=== PATIENT | male | born 1965 | race Caucasian/White ===

== ENCOUNTER 2020-11-13 11:33 | Emergency (ER) | payer MEDICARE ==
[~2020-11-13] VITALS: Ht 167.6 cm; Wt 90.7 kg
== END 2020-11-13 15:29 | disposition home or self-care (01) ==
LOC: ER 11:55
DX: J44.9 Chronic obstructive pulmonary disease, unspecified (principal); R06.2 Wheezing; I10 Essential (primary) hypertension; F17.210 Nicotine dependence, cigarettes, uncomplicated
CPT/HCPCS: 99282

== ENCOUNTER 2021-01-21 13:30 | Inpatient (IN) | payer MEDICARE ==
[~2021-01-21] VITALS: Ht 167.6 cm; Wt 90.7 kg
[2021-01-21] MEDS ORDERED: ONDANSETRON HCL INJ 2MG/ML 2ML 2 MG/ML VIAL IV STA (13:46)
[2021-01-21] MEDS ORDERED: METHYLPREDNISOLONE SOD SUCC 125 MG/2ML VIAL IV STA (13:46)
[2021-01-21] MEDS ORDERED: MORPHINE SULFATE INJ 2 MG/ML SYR IV STA (13:46)
[2021-01-21 14:05] LABS: BASOPHILS # (AUTO) 0.1 (0.0-0.1); BASOPHILS % 0.5 % (0.0-1.0); EOSINOPHILS # (AUTO) 0.3 (0.0-0.4); EOSINOPHILS % 1.2 % (0.0-6.0); HEMATOCRIT 51.2 % (38.2-49.6); HEMOGLOBIN 17.1 g/dL (14.0-18.0); LYMPHOCYTES # (AUTO) 3.2 (1.0-3.2); LYMPHOCYTES % 12.4 % (18.0-39.1); MEAN CORPUSCULAR HEMOGLOBIN 30.3 pg (28-32); MEAN CORPUSCULAR HGB CONC 33.4 g/dL (31-35); MEAN CORPUSCULAR VOLUME 90.6 fL (81-99); MONOCYTES # (AUTO) 1.6 (0.2-0.8); MONOCYTES % 6.4 % (4.4-11.3); NEUTROPHILS # (AUTO) 20.2 (2.1-6.9); NEUTROPHILS % 78.6 % (38.7-80.0); PLATELET COUNT 363 x10e3/uL (140-360); RED BLOOD COUNT 5.65 x10e6/uL (4.3-5.7); RED CELL DISTRIBUTION WIDTH 14.6 % (11.7-14.4)
[2021-01-21 14:15] LABS: INR 0.87; PARTIAL THROMBOPLASTIN TIME 28.9 seconds (23.8-35.5); PROTHROMBIN TIME 12.3 seconds (11.9-14.5)
[2021-01-21 14:26] LABS: ALANINE AMINOTRANSFERASE 27 IU/L (0-55); ALBUMIN 3.8 g/dL (3.5-5.0); ALKALINE PHOSPHATASE 95 IU/L (40-150); ANION GAP 14.3 mmol/L (8-16); BLOOD UREA NITROGEN 17 mg/dL (7-26); BUN/CREATININE RATIO 19 (6-25); CALCIUM 9.5 mg/dL (8.4-10.2); CARBON DIOXIDE 27 mmol/L (22-29); CHLORIDE 99 mmol/L (98-107); CREATINE KINASE 133 IU/L (30-200); CREATININE, SERUM 0.91 mg/dL (0.72-1.25); EST GLOMERULAR FILTRATION RATE > 60 ML/MIN (60-); GLUCOSE 95 mg/dL (74-118); MAGNESIUM 2.3 MG/DL (1.3-2.1); POTASSIUM 4.3 mmol/L (3.5-5.1); SODIUM 136 mmol/L (136-145)
[2021-01-21] MEDS ORDERED: ALBUTEROL/IPRATROPIUM 3 ML NEB NEB ONE (14:30)
[2021-01-21] MEDS ORDERED: NITROGLYCERIN 2% OINT 1 GM PKT TOP ONE (14:30)
[2021-01-21] MEDS ORDERED: CEFTRIAXONE SOD 1 GM/50 ML BAG IV SCH (14:30)
[2021-01-21 14:34] LABS: B-TYPE NATRIURETIC PEPTIDE2 32.2 pg/mL (0-100)
[2021-01-21] MEDS: CEFTRIAXONE SOD 1 GM in SODIUM CHLORIDE 0.9% 50ML 50 ML IV SCH (14:39)
[2021-01-21] MEDS ORDERED: SODIUM CHLORIDE 0.9% 1000ML 1,000 ML IV ONE (15:15)
[2021-01-21] MEDS ORDERED: ALBUTEROL SULF 0.083% NEB SOLN 3 ML NEB NEB PRN (15:15)
[2021-01-21] MEDS: AZITHROMYCIN 500MG/NS 250 ML 250 ML IV SCH (15:25)
[2021-01-21] MEDS: NICOTINE 21 MG/EA PATCH TOP SCH (15:42)
[2021-01-21 17:00] VITALS: BP_SYST 128; BP_SYST 131; BP_DIAS 84; BP_DIAS 87
[2021-01-21 20:00] VITALS: BP 123/87
[2021-01-21] MEDS ORDERED: ATORVASTATIN CA40 MG PO (20:19)
[2021-01-21] MEDS ORDERED: VALSARTAN-HCTZ1 EAC4 PEG (20:19)
[2021-01-21] MEDS ORDERED: BREO ELLIPTA 21 EACH INH (20:20)
[2021-01-21] MEDS ORDERED: WELLBUTRIN SR100 MG PO (20:21)
[2021-01-21] MEDS ORDERED: METOPROLOL SUCC50 MG PO (20:27)
[2021-01-21] MEDS ORDERED: ASPIRIN81 MG PO (20:27)
[2021-01-21] MEDS ORDERED: PROMETHAZINE 12.5MG/ NACL 0.9% 12.5 MG/50 ML BAG IV PRN (20:45)
[2021-01-21] MEDS: MORPHINE SULFATE INJ 4 MG/ML INJ 1ML IV PRN (20:46)
[2021-01-21 21:00] VITALS: BP 123/87
[2021-01-21] MEDS: ALBUTEROL/IPRATROPIUM 3 ML NEB NEB SCH ×2 (21:01)
[2021-01-21] MEDS: METHYLPREDNISOLONE SOD SUCC 125 MG/2ML VIAL IV SCH (21:32)
[2021-01-21 22:23] LABS: CREATINE KINASE MB 1.1 ng/mL (0-5.0)
[2021-01-22] VITALS (7 sets, daily range): BP systolic 107–141; BP diastolic 74–93
[2021-01-22] MEDS: CEFTRIAXONE SOD 1 GM in SODIUM CHLORIDE 0.9% 50ML 50 ML IV SCH ×2 (02:36→14:20)
[2021-01-22] MEDS ORDERED: CEFTRIAXONE SOD 1 GM VIAL ONE ×2 (02:43→14:12)
[2021-01-22] MEDS ORDERED: SODIUM CHLORIDE 0.9% 50ML 50 ML ONE ×2 (02:43→14:12)
[2021-01-22] MEDS: ALBUTEROL/IPRATROPIUM 3 ML NEB NEB SCH ×6 (03:50→23:40)
[2021-01-22] MEDS: METHYLPREDNISOLONE SOD SUCC 125 MG/2ML VIAL IV SCH ×2 (05:19→17:12)
[2021-01-22] MEDS ORDERED: ZOLPIDEM TARTRATE 5 MG TAB PO PRN (06:00)
[2021-01-22] MEDS ORDERED: ONDANSETRON HCL INJ 2MG/ML 2ML 2 MG/ML VIAL IV PRN (06:00)
[2021-01-22] MEDS: MORPHINE SULFATE INJ 4 MG/ML INJ 1ML IV PRN ×4 (06:09→22:04)
[2021-01-22 06:16] LABS: BASOPHILS % 0.2 % (0.0-1.0); HEMATOCRIT 44.6 % (38.2-49.6); HEMOGLOBIN 14.4 g/dL (14.0-18.0); LYMPHOCYTES # (AUTO) 1.1 (1.0-3.2); MEAN CORPUSCULAR HEMOGLOBIN 29.9 pg (28-32); MEAN CORPUSCULAR HGB CONC 32.3 g/dL (31-35); MEAN CORPUSCULAR VOLUME 92.7 fL (81-99); MONOCYTES # (AUTO) 0.3 (0.2-0.8); MONOCYTES % 1.4 % (4.4-11.3); NEUTROPHILS # (AUTO) 20.6 (2.1-6.9); NEUTROPHILS % 92.6 % (38.7-80.0); PLATELET COUNT 342 x10e3/uL (140-360); RED BLOOD COUNT 4.81 x10e6/uL (4.3-5.7); RED CELL DISTRIBUTION WIDTH 14.9 % (11.7-14.4)
[2021-01-22 06:44] LABS: ALANINE AMINOTRANSFERASE 21 IU/L (0-55); ALBUMIN/GLOBULIN RATIO 0.9 (0.8-2.0); ALKALINE PHOSPHATASE 70 IU/L (40-150); ANION GAP 14.5 mmol/L (8-16); BLOOD UREA NITROGEN 21 mg/dL (7-26); BUN/CREATININE RATIO 21 (6-25); CALCIUM 8.6 mg/dL (8.4-10.2); CARBON DIOXIDE 24 mmol/L (22-29); CHLORIDE 104 mmol/L (98-107); CREATININE, SERUM 1.02 mg/dL (0.72-1.25); EST GLOMERULAR FILTRATION RATE > 60 ML/MIN (60-); GLUCOSE 166 mg/dL (74-118); POTASSIUM 4.5 mmol/L (3.5-5.1); SODIUM 138 mmol/L (136-145)
[2021-01-22 07:18] LABS: CREATINE KINASE MB 1.3 ng/mL (0-5.0)
[2021-01-22] MEDS: NON-FORMULARY MEDICATION (Fluticasone/Vilanterol (Breo Ellipta 200-25 Mcg INH) 1 INH) INH SCH (09:00)
[2021-01-22] MEDS: LORATADINE 10 MG TAB PO SCH (09:24)
[2021-01-22] MEDS: VALSARTAN 160 MG TAB PEG SCH (09:24)
[2021-01-22] MEDS: ASPIRIN 81 MG CHEW TAB PO SCH (09:24)
[2021-01-22] MEDS: GUAIFENESIN/DEXTROMETHORPHAN LIQD 5 ML UDC NG PRN ×3 (09:24→22:04)
[2021-01-22] MEDS: HYDROCHLOROTHIAZIDE 25 MG TAB PO SCH (09:24)
[2021-01-22] MEDS: METOPROLOL SUCCINATE 50 MG TAB XL PO SCH ×2 (09:24→17:12)
[2021-01-22] MEDS: BUPROPION HCL 100 MG TAB PO SCH (09:24)
[2021-01-22] MEDS: FAMOTIDINE 20 MG TAB PO SCH ×2 (09:24→17:11)
[2021-01-22] MEDS: BENZONATATE 100 MG CAP PO SCH ×3 (09:24→20:33)
[2021-01-22] MEDS: ACETAMINOPHEN 325 MG TAB PO PRN ×4 (09:25→22:30)
[2021-01-22 11:46] LABS: ANISOCYTOSIS SLIGHT; LYMPHOCYTES % (MANUAL) 3 % (19-48); MONOCYTES % (MANUAL) 1 % (3.4-9.0); NEUTROPHILS % (MANUAL) 94 % (40-74); PLATELET ESTIMATE ADEQUATE; PLATELET MORPHOLOGY COMMENT NORMAL; RBC MORPHOLOGY COMMENT NORMAL
[2021-01-22 11:47] LABS: TEAR DROP CELLS SL
[2021-01-22] MEDS: DOCUSATE SODIUM 100 MG CAP PO PRN (13:33)
[2021-01-22] MEDS: NICOTINE 21 MG/EA PATCH TOP SCH (16:00)
[2021-01-22] MEDS: AZITHROMYCIN 500MG/NS 250 ML 250 ML IV SCH (16:00)
[2021-01-22] MEDS ORDERED: SODIUM CHLORIDE 0.9% 250ML 250 ML ONE (16:02)
[2021-01-22] MEDS: ENOXAPARIN SOD INJ 40 MG/0.4 ML SYR SC SCH (17:12)
[2021-01-22] MEDS: ATORVASTATIN 40 MG TAB PO SCH (20:33)
[2021-01-23] VITALS (8 sets, daily range): BP systolic 106–159; BP diastolic 64–96
[2021-01-23] MEDS: CEFTRIAXONE SOD 1 GM in SODIUM CHLORIDE 0.9% 50ML 50 ML IV SCH ×2 (01:53→14:30)
[2021-01-23] MEDS: MORPHINE SULFATE INJ 4 MG/ML INJ 1ML IV PRN ×2 (02:00→06:09)
[2021-01-23] MEDS: GUAIFENESIN/DEXTROMETHORPHAN LIQD 5 ML UDC NG PRN (02:01)
[2021-01-23] MEDS ORDERED: CEFTRIAXONE SOD 1 GM VIAL ONE ×2 (02:01→14:28)
[2021-01-23] MEDS ORDERED: SODIUM CHLORIDE 0.9% 50ML 50 ML ONE (02:01)
[2021-01-23] MEDS: ALBUTEROL/IPRATROPIUM 3 ML NEB NEB SCH ×6 (03:00→23:40)
[2021-01-23] MEDS: METHYLPREDNISOLONE SOD SUCC 125 MG/2ML VIAL IV SCH ×2 (05:00→16:57)
[2021-01-23] MEDS: NON-FORMULARY MEDICATION (Fluticasone/Vilanterol (Breo Ellipta 200-25 Mcg INH) 1 INH) INH SCH (07:33)
[2021-01-23 08:32] LABS: BASOPHILS % 0.2 % (0.0-1.0); HEMATOCRIT 48.6 % (38.2-49.6); HEMOGLOBIN 15.8 g/dL (14.0-18.0); LYMPHOCYTES # (AUTO) 1.1 (1.0-3.2); LYMPHOCYTES % 4.5 % (18.0-39.1); MEAN CORPUSCULAR HEMOGLOBIN 30.2 pg (28-32); MEAN CORPUSCULAR HGB CONC 32.5 g/dL (31-35); MEAN CORPUSCULAR VOLUME 92.7 fL (81-99); MONOCYTES # (AUTO) 0.3 (0.2-0.8); MONOCYTES % 1.4 % (4.4-11.3); NEUTROPHILS # (AUTO) 22.3 (2.1-6.9); NEUTROPHILS % 93.1 % (38.7-80.0); PLATELET COUNT 385 x10e3/uL (140-360); RED BLOOD COUNT 5.24 x10e6/uL (4.3-5.7); RED CELL DISTRIBUTION WIDTH 14.8 % (11.7-14.4)
[2021-01-23] MEDS: BENZONATATE 100 MG CAP PO SCH ×3 (08:32→21:36)
[2021-01-23] MEDS: FAMOTIDINE 20 MG TAB PO SCH ×2 (08:32→16:57)
[2021-01-23] MEDS: VALSARTAN 160 MG TAB PEG SCH (08:32)
[2021-01-23] MEDS: METOPROLOL SUCCINATE 50 MG TAB XL PO SCH ×2 (08:33→16:58)
[2021-01-23] MEDS: LORATADINE 10 MG TAB PO SCH (08:33)
[2021-01-23] MEDS: ASPIRIN 81 MG CHEW TAB PO SCH (08:33)
[2021-01-23] MEDS: BUPROPION HCL 100 MG TAB PO SCH (08:33)
[2021-01-23] MEDS: HYDROCHLOROTHIAZIDE 25 MG TAB PO SCH (08:33)
[2021-01-23] MEDS: DOCUSATE SODIUM 100 MG CAP PO PRN (08:34)
[2021-01-23] MEDS: ACETAMINOPHEN 325 MG TAB PO PRN ×3 (08:36→23:00)
[2021-01-23 08:59] LABS: BLOOD UREA NITROGEN 32 mg/dL (7-26); BUN/CREATININE RATIO 30 (6-25); CALCIUM 8.8 mg/dL (8.4-10.2); CARBON DIOXIDE 24 mmol/L (22-29); CHLORIDE 100 mmol/L (98-107); CREATININE, SERUM 1.05 mg/dL (0.72-1.25); EST GLOMERULAR FILTRATION RATE > 60 ML/MIN (60-); GLUCOSE 143 mg/dL (74-118); SODIUM 135 mmol/L (136-145)
[2021-01-23] MEDS: GUAIFENESIN/CODEINE 10 ML CUP PO PRN ×2 (10:15→18:19)
[2021-01-23] MEDS: HYDROMORPHONE 1MG/1ML INJ IV PRN ×4 (10:15→22:58)
[2021-01-23 11:29] LABS: ANISOCYTOSIS SLIGHT; LYMPHOCYTES % (MANUAL) 8 % (19-48); MONOCYTES % (MANUAL) 1 % (3.4-9.0); NEUTROPHILS % (MANUAL) 91 % (40-74); PLATELET ESTIMATE SLIGHTLY INCREASED; PLATELET MORPHOLOGY COMMENT NORMAL; RBC MORPHOLOGY COMMENT NORMAL
[2021-01-23] MEDS ORDERED: SODIUM CHLORIDE 0.9% 100 ML ONE (14:29)
[2021-01-23] MEDS: AZITHROMYCIN 500MG/NS 250 ML 250 ML IV SCH (15:35)
[2021-01-23] MEDS ORDERED: ICOSAPENT ETHYL1 GM PO (15:47)
[2021-01-23] MEDS: NICOTINE 21 MG/EA PATCH TOP SCH (16:57)
[2021-01-23] MEDS: ENOXAPARIN SOD INJ 40 MG/0.4 ML SYR SC SCH (16:58)
[2021-01-23] MEDS: ATORVASTATIN 40 MG TAB PO SCH (21:36)
[2021-01-24] VITALS: BP 134/95
[2021-01-24] MEDS: CEFTRIAXONE SOD 1 GM in SODIUM CHLORIDE 0.9% 50ML 50 ML IV SCH (02:30)
[2021-01-24] MEDS: HYDROMORPHONE 1MG/1ML INJ IV PRN ×2 (02:52→06:59)
[2021-01-24] MEDS ORDERED: CEFTRIAXONE SOD 1 GM VIAL ONE (02:57)
[2021-01-24] MEDS ORDERED: SODIUM CHLORIDE 0.9% 50ML 50 ML ONE (02:58)
[2021-01-24] MEDS: ALBUTEROL/IPRATROPIUM 3 ML NEB NEB SCH ×2 (03:00→07:00)
[2021-01-24] MEDS: GUAIFENESIN/CODEINE 10 ML CUP PO PRN (03:01)
[2021-01-24] MEDS: METHYLPREDNISOLONE SOD SUCC 125 MG/2ML VIAL IV SCH (05:00)
[2021-01-24 06:12] LABS: BASOPHILS % 0.2 % (0.0-1.0); LYMPHOCYTES # (AUTO) 1.7 (1.0-3.2); LYMPHOCYTES % 9.3 % (18.0-39.1); MEAN CORPUSCULAR HEMOGLOBIN 30.1 pg (28-32); MEAN CORPUSCULAR HGB CONC 32.6 g/dL (31-35); MEAN CORPUSCULAR VOLUME 92.2 fL (81-99); MONOCYTES # (AUTO) 1.5 (0.2-0.8); NEUTROPHILS # (AUTO) 15.1 (2.1-6.9); NEUTROPHILS % 81.8 % (38.7-80.0); PLATELET COUNT 371 x10e3/uL (140-360); RED BLOOD COUNT 4.99 x10e6/uL (4.3-5.7); RED CELL DISTRIBUTION WIDTH 14.8 % (11.7-14.4)
[2021-01-24 06:30] LABS: ALANINE AMINOTRANSFERASE 28 IU/L (0-55); ALBUMIN 3.5 g/dL (3.5-5.0); ALBUMIN/GLOBULIN RATIO 1.2 (0.8-2.0); ALKALINE PHOSPHATASE 85 IU/L (40-150); ANION GAP 13.8 mmol/L (8-16); BLOOD UREA NITROGEN 39 mg/dL (7-26); BUN/CREATININE RATIO 35 (6-25); CALCIUM 8.7 mg/dL (8.4-10.2); CARBON DIOXIDE 24 mmol/L (22-29); CHLORIDE 104 mmol/L (98-107); CREATININE, SERUM 1.12 mg/dL (0.72-1.25); EST GLOMERULAR FILTRATION RATE > 60 ML/MIN (60-); GLUCOSE 102 mg/dL (74-118); POTASSIUM 4.8 mmol/L (3.5-5.1); SODIUM 137 mmol/L (136-145)
[2021-01-24] MEDS: FAMOTIDINE 20 MG TAB PO SCH (07:30)
[2021-01-24 08:19] VITALS: BP 129/96
[2021-01-24] MEDS: BENZONATATE 100 MG CAP PO SCH (08:25)
[2021-01-24] MEDS: BUPROPION HCL 100 MG TAB PO SCH (08:25)
[2021-01-24] MEDS: HYDROCHLOROTHIAZIDE 25 MG TAB PO SCH (08:25)
[2021-01-24] MEDS: METOPROLOL SUCCINATE 50 MG TAB XL PO SCH (08:25)
[2021-01-24] MEDS: ASPIRIN 81 MG CHEW TAB PO SCH (08:26)
[2021-01-24] MEDS: VALSARTAN 160 MG TAB PEG SCH (08:26)
[2021-01-24] MEDS: LORATADINE 10 MG TAB PO SCH (08:26)
[2021-01-24 08:27] VITALS: BP 129/96
[2021-01-24] MEDS: NON-FORMULARY MEDICATION (Fluticasone/Vilanterol (Breo Ellipta 200-25 Mcg INH) 1 INH) INH SCH (08:27)
[2021-01-24 09:26] VITALS: BP 129/96
== END 2021-01-24 10:39 | disposition left against medical advice (07) | DRG 872 ==
LOC: ER 14:01 → ERHOLD 15:15 → MED/SURG3 16:33
PROVIDERS: ADMIT Internal Medicine; ATTEND Internal Medicine
DX: A41.9 Sepsis, unspecified organism (principal); J44.1 Chronic obstructive pulmonary disease with (acute) exacerbation; E66.01 Morbid (severe) obesity due to excess calories; J62.8 Pneumoconiosis due to other dust containing silica; J43.9 Emphysema, unspecified; F17.200 Nicotine dependence, unspecified, uncomplicated; I10 Essential (primary) hypertension; Z68.32 Body mass index [BMI] 32.0-32.9, adult
CPT/HCPCS: 36415; 71045; 71046; 71250; 80048; 80053; 82103; 82550; 82553; 83605; 83735; 83880; 84484; 85025; 85610; 85730; 87040; 93005; 94640; 99284; J0456; J0696; J1170; J1650; J2270; J2405; J2550; J2930; J7030; J7050; U0002

== ENCOUNTER 2023-04-01 18:58 | Inpatient (IN) | payer MEDICARE ==
[~2023-04-01] VITALS: Ht 167.6 cm; Wt 81.6 kg
[~2023-04-01 18:58] MED LIST: ASPIRIN81 MG PO; ATORVASTATIN CA40 MG PO; BREO ELLIPTA 21 EACH INH; ICOSAPENT ETHYL1 GM PO; METOPROLOL SUCC50 MG PO; VALSARTAN-HCTZ1 EAC4 PEG; WELLBUTRIN SR100 MG PO
[2023-04-01] MEDS ORDERED: ACETAMINOPHEN 325 MG TAB PO STA (19:38)
[2023-04-01] MEDS ORDERED: ALBUTEROL/IPRATROPIUM 3 ML NEB NEB STA (19:41)
[2023-04-01] MEDS ORDERED: METHYLPREDNISOLONE SOD SUCC 125 MG/2ML VIAL IV STA (19:41)
[2023-04-01 20:00] VITALS: PULSE 91; RESP 24; O2SAT 97
[2023-04-01 20:13] LABS: BASOPHILS # (AUTO) 0.1 (0.0-0.1); BASOPHILS % 0.8 % (0.0-1.0); EOSINOPHILS # (AUTO) 0.2 (0.0-0.4); EOSINOPHILS % 1.2 % (0.0-6.0); HEMATOCRIT 53.9 % (38.2-49.6); HEMOGLOBIN 17.9 g/dL (14.0-18.0); LYMPHOCYTES # (AUTO) 2.3 (1.0-3.2); LYMPHOCYTES % 13.9 % (18.0-39.1); MEAN CORPUSCULAR HEMOGLOBIN 30.9 pg (28-32); MEAN CORPUSCULAR HGB CONC 33.2 g/dL (31-35); MEAN CORPUSCULAR VOLUME 93.1 fL (81-99); MONOCYTES # (AUTO) 1.3 (0.2-0.8); MONOCYTES % 7.8 % (4.4-11.3); NEUTROPHILS # (AUTO) 12.5 (2.1-6.9); NEUTROPHILS % 75.8 % (38.7-80.0); PLATELET COUNT 403 x10e3/uL (140-360); RED BLOOD COUNT 5.79 x10e6/uL (4.3-5.7); RED CELL DISTRIBUTION WIDTH 14.4 % (11.7-14.4)
[2023-04-01 20:31] LABS: ALBUMIN 3.6 g/dL (3.5-5.0); CALCIUM 9.5 mg/dL (8.4-10.2); CREATININE, SERUM 1.08 mg/dL (0.72-1.25)
[2023-04-01] MEDS ORDERED: SODIUM CHLORIDE 0.9% 1000ML 1,000 ML IV STA ×2 (20:52→23:21)
[2023-04-01] MEDS: SODIUM CHLORIDE 0.9% 1000ML 1,000 ML IV SCH (22:50)
[2023-04-01 22:53] LABS: AMPHETAMINES SCREEN,URINE NEGATIVE (NEGATIVE); BENZODIAZEPINES SCREEN,URINE NEGATIVE (NEGATIVE); PHENCYCLIDINE SCREEN,URINE NEGATIVE (NEGATIVE)
[2023-04-01] MEDS ORDERED: SODIUM CHLORIDE 0.9% 1000ML 1,000 ML IV ONE (23:30)
[2023-04-02] VITALS (9 sets, daily range): BP systolic 151–164; BP diastolic 82–98; PULSE 86–101; RESP 18–22; TEMP 97.7–98.3; O2SAT 93–98
[2023-04-02] MEDS ORDERED: KETOROLAC TROMETHAMINE 30 MG/ML VIAL IV STA (02:08)
[2023-04-02] MEDS ORDERED: Morphine 4mg INJECTION 4 MG/ML INJ IV PRN (02:15)
[2023-04-02 04:35] LABS: BASOPHILS # (AUTO) 0.1 (0.0-0.1); BASOPHILS % 0.5 % (0.0-1.0); HEMATOCRIT 50.6 % (38.2-49.6); HEMOGLOBIN 16.5 g/dL (14.0-18.0); LYMPHOCYTES # (AUTO) 1.1 (1.0-3.2); LYMPHOCYTES % 6.9 % (18.0-39.1); MEAN CORPUSCULAR HGB CONC 32.6 g/dL (31-35); MEAN CORPUSCULAR VOLUME 94.9 fL (81-99); MONOCYTES # (AUTO) 0.1 (0.2-0.8); MONOCYTES % 0.4 % (4.4-11.3); NEUTROPHILS # (AUTO) 14.2 (2.1-6.9); NEUTROPHILS % 91.6 % (38.7-80.0); PLATELET COUNT 392 x10e3/uL (140-360); RED BLOOD COUNT 5.33 x10e6/uL (4.3-5.7); RED CELL DISTRIBUTION WIDTH 13.2 % (11.7-14.4)
[2023-04-02 04:57] LABS: ALBUMIN 3.2 g/dL (3.5-5.0); ALBUMIN/GLOBULIN RATIO 1.1 (0.8-2.0); ANION GAP 13.4 mmol/L (8-16); CALCIUM 8.4 mg/dL (8.4-10.2); CREATININE, SERUM 0.82 mg/dL (0.72-1.25); POTASSIUM 4.4 mmol/L (3.5-5.1)
[2023-04-02] MEDS: SODIUM CHLORIDE 0.9% 1000ML 1,000 ML IV SCH ×2 (05:00→15:36)
[2023-04-02] MEDS ORDERED: BENZONATATE 100 MG CAP PO PRN (08:45)
[2023-04-02] MEDS ORDERED: ALBUTEROL/IPRATROPIUM 3 ML NEB NEB PRN (08:45)
[2023-04-02] MEDS ORDERED: METHYLPREDNISOLONE SOD SUCC 40 MG/ML VIAL 1ML IV SCH ×2 (08:45→12:00)
[2023-04-02] MEDS: ALBUTEROL/IPRATROPIUM 3 ML NEB NEB SCH ×3 (10:30→20:25)
[2023-04-02 10:56] LABS: ABG HCO3 26 mmol/L (22-26); ABG PCO2 41 mmHg (35-45); ABG PH 7.41 (7.35-7.45); ABG PO2 158 mmHg (80-105); ABG TCO2 27
[2023-04-02] MEDS: BENZONATATE 100 MG CAP PO SCH ×3 (11:14→21:26)
[2023-04-02] MEDS: DEXAMETHASONE SOD PHOS 10 MG/1 ML VIAL IV SCH (11:15)
[2023-04-02] MEDS: HYDROCODONE/APAP 7.5MG-325MG 1 EA TAB PO PRN (12:49)
[2023-04-02 13:33] LABS: CREATINE KINASE 57 IU/L (30-200)
[2023-04-02] MEDS ORDERED: VALSARTAN-HCTZ1 EAC4 PO (18:28)
[2023-04-02] MEDS ORDERED: METOPROLOL SUCC50 MG PO (18:28)
[2023-04-02] MEDS ORDERED: ATORVASTATIN CA20 MG PO (18:28)
[2023-04-02] MEDS ORDERED: ASPIRIN81 MG PO (18:28)
[2023-04-02] MEDS ORDERED: NITROGLYCERIN0.4 MG SL (18:28)
[2023-04-02] MEDS ORDERED: VASCEPA1 GM PO (18:28)
[2023-04-02] MEDS ORDERED: PREDNISONE20 MG PO (18:28)
[2023-04-02] MEDS ORDERED: BREO ELLIPTA 11 EACH (18:28)
[2023-04-02] MEDS ORDERED: BUPROPION HCL100 MG PO (18:28)
[2023-04-02] MEDS ORDERED: AMLODIPINE BESYL5 MG PO (18:28)
[2023-04-02] MEDS: BUDESONIDE/FORMOTEROL 160/4.5MCG INHALER INH SCH (19:00)
[2023-04-02] MEDS: HEPARIN SOD (PORCINE) 5,000 UNIT/ML VIAL SC SCH (21:34)
[2023-04-03] VITALS (13 sets, daily range): BP systolic 59–165; BP diastolic 77–99; PULSE 65–95; RESP 16–22; TEMP 97.5–98.4; O2SAT 92–100
[2023-04-03] MEDS: SODIUM CHLORIDE 0.9% 1000ML 1,000 ML IV SCH (00:45)
[2023-04-03] MEDS: ALBUTEROL/IPRATROPIUM 3 ML NEB NEB SCH ×4 (01:00→19:40)
[2023-04-03 06:13] LABS: ALBUMIN/GLOBULIN RATIO 1.2 (0.8-2.0); ANION GAP 10.8 mmol/L (8-16); CALCIUM 9.1 mg/dL (8.4-10.2); CREATININE, SERUM 0.78 mg/dL (0.72-1.25); POTASSIUM 3.8 mmol/L (3.5-5.1)
[2023-04-03] MEDS: BUDESONIDE/FORMOTEROL 160/4.5MCG INHALER INH SCH ×2 (06:47→19:50)
[2023-04-03] MEDS: BENZONATATE 100 MG CAP PO SCH ×3 (09:25→21:11)
[2023-04-03] MEDS: HEPARIN SOD (PORCINE) 5,000 UNIT/ML VIAL SC SCH ×2 (09:26→21:13)
[2023-04-03] MEDS: DEXAMETHASONE SOD PHOS 10 MG/1 ML VIAL IV SCH (09:28)
[2023-04-03] MEDS ORDERED: NITROGLYCERIN 0.4 MG SUBL SL PRN (10:30)
[2023-04-03] MEDS ORDERED: FUROSEMIDE INJ 10 MG/ML 4 ML VIAL IV ONE (10:45)
[2023-04-03] MEDS: ASPIRIN 81 MG CHEW TAB PO SCH (11:00)
[2023-04-03] MEDS: HYDROCODONE/APAP 7.5MG-325MG 1 EA TAB PO PRN ×2 (12:09→18:21)
[2023-04-03] MEDS: AMLODIPINE BESYLATE 5 MG TAB PO SCH (12:15)
[2023-04-03] MEDS: GABAPENTIN 100 MG CAP PO SCH ×2 (12:30→18:22)
[2023-04-03] MEDS: BUPROPION HCL 100 MG TAB PO SCH (18:13)
[2023-04-03] MEDS: METOPROLOL SUCCINATE 50 MG TAB XL PO SCH (18:14)
[2023-04-03] MEDS: ATORVASTATIN 40 MG TAB PO SCH (21:10)
[2023-04-04] VITALS (12 sets, daily range): BP systolic 121–146; BP diastolic 68–96; PULSE 53–82; RESP 17–22; TEMP 97.5–98.4; O2SAT 94–100
[2023-04-04] MEDS: GABAPENTIN 100 MG CAP PO SCH ×5 (00:05→23:41)
[2023-04-04] MEDS: HYDROCODONE/APAP 7.5MG-325MG 1 EA TAB PO PRN ×4 (00:10→21:30)
[2023-04-04] MEDS: ALBUTEROL/IPRATROPIUM 3 ML NEB NEB SCH ×4 (00:25→19:15)
[2023-04-04 05:43] LABS: BASOPHILS % 0.1 % (0.0-1.0); HEMATOCRIT 47.1 % (38.2-49.6); HEMOGLOBIN 15.3 g/dL (14.0-18.0); LYMPHOCYTES # (AUTO) 2.2 (1.0-3.2); LYMPHOCYTES % 10.3 % (18.0-39.1); MEAN CORPUSCULAR HEMOGLOBIN 30.5 pg (28-32); MEAN CORPUSCULAR HGB CONC 32.5 g/dL (31-35); MONOCYTES # (AUTO) 1.5 (0.2-0.8); MONOCYTES % 6.9 % (4.4-11.3); NEUTROPHILS # (AUTO) 17.4 (2.1-6.9); NEUTROPHILS % 81.9 % (38.7-80.0); PLATELET COUNT 372 x10e3/uL (140-360); RED BLOOD COUNT 5.01 x10e6/uL (4.3-5.7); RED CELL DISTRIBUTION WIDTH 13.4 % (11.7-14.4)
[2023-04-04 06:12] LABS: ANION GAP 12.5 mmol/L (8-16); CREATININE, SERUM 0.82 mg/dL (0.72-1.25); POTASSIUM 3.5 mmol/L (3.5-5.1)
[2023-04-04] MEDS: BUDESONIDE/FORMOTEROL 160/4.5MCG INHALER INH SCH ×2 (06:41→19:15)
[2023-04-04 07:29] LABS: LYMPHOCYTES % (MANUAL) 9 % (19-48); MONOCYTES % (MANUAL) 10 % (3.4-9.0); NEUTROPHILS % (MANUAL) 79 % (40-74); PLATELET ESTIMATE ADEQUATE; PLATELET MORPHOLOGY COMMENT NORMAL; RBC MORPHOLOGY COMMENT NORMAL
[2023-04-04] MEDS: BENZONATATE 100 MG CAP PO SCH ×3 (09:26→21:06)
[2023-04-04] MEDS: DEXAMETHASONE SOD PHOS 10 MG/1 ML VIAL IV SCH (09:26)
[2023-04-04] MEDS: ASPIRIN 81 MG CHEW TAB PO SCH (09:26)
[2023-04-04] MEDS: BUPROPION HCL 100 MG TAB PO SCH ×2 (09:26→16:39)
[2023-04-04] MEDS: METOPROLOL SUCCINATE 50 MG TAB XL PO SCH ×2 (09:27→16:40)
[2023-04-04] MEDS: HEPARIN SOD (PORCINE) 5,000 UNIT/ML VIAL SC SCH ×2 (09:29→21:10)
[2023-04-04] MEDS: AMLODIPINE BESYLATE 5 MG TAB PO SCH (09:31)
[2023-04-04] MEDS: ATORVASTATIN 40 MG TAB PO SCH (21:07)
[2023-04-05] VITALS (11 sets, daily range): BP systolic 123–150; BP diastolic 72–92; PULSE 54–76; RESP 18–21; TEMP 97.5–98.9; O2SAT 93–97
[2023-04-05] MEDS: ALBUTEROL/IPRATROPIUM 3 ML NEB NEB SCH ×3 (01:00→19:10)
[2023-04-05] MEDS: GABAPENTIN 100 MG CAP PO SCH ×4 (05:49→23:33)
[2023-04-05] MEDS: BUDESONIDE/FORMOTEROL 160/4.5MCG INHALER INH SCH ×2 (06:24→19:10)
[2023-04-05] MEDS: BUPROPION HCL 100 MG TAB PO SCH ×2 (08:09→17:48)
[2023-04-05] MEDS: ASPIRIN 81 MG CHEW TAB PO SCH (08:11)
[2023-04-05] MEDS: BENZONATATE 100 MG CAP PO SCH ×3 (08:11→20:50)
[2023-04-05] MEDS: PANTOPRAZOLE SOD 40 MG TABEC PO SCH (08:11)
[2023-04-05] MEDS: AMLODIPINE BESYLATE 5 MG TAB PO SCH (08:11)
[2023-04-05] MEDS: DEXAMETHASONE SOD PHOS 10 MG/1 ML VIAL IV SCH (08:11)
[2023-04-05] MEDS: HEPARIN SOD (PORCINE) 5,000 UNIT/ML VIAL SC SCH ×2 (09:00→20:52)
[2023-04-05] MEDS: METOPROLOL SUCCINATE 50 MG TAB XL PO SCH ×2 (09:00→17:49)
[2023-04-05] MEDS: HYDROCODONE/APAP 7.5MG-325MG 1 EA TAB PO PRN ×3 (10:54→22:00)
[2023-04-05] MEDS: ATORVASTATIN 40 MG TAB PO SCH (20:51)
[2023-04-06] VITALS (12 sets, daily range): BP systolic 130–143; BP diastolic 66–91; PULSE 63–86; RESP 18–20; TEMP 97.2–98.7; O2SAT 66–98
[2023-04-06] MEDS: ALBUTEROL/IPRATROPIUM 3 ML NEB NEB SCH ×5 (00:13→23:30)
[2023-04-06] MEDS: GABAPENTIN 100 MG CAP PO SCH ×4 (05:21→23:47)
[2023-04-06] MEDS: BUDESONIDE/FORMOTEROL 160/4.5MCG INHALER INH SCH ×2 (07:00→19:00)
[2023-04-06] MEDS: AMLODIPINE BESYLATE 5 MG TAB PO SCH (08:46)
[2023-04-06] MEDS: DEXAMETHASONE SOD PHOS 10 MG/1 ML VIAL IV SCH (08:46)
[2023-04-06] MEDS: ASPIRIN 81 MG CHEW TAB PO SCH (08:47)
[2023-04-06] MEDS: BENZONATATE 100 MG CAP PO SCH ×3 (08:47→21:10)
[2023-04-06] MEDS: METOPROLOL SUCCINATE 50 MG TAB XL PO SCH ×2 (08:48→17:30)
[2023-04-06] MEDS: PANTOPRAZOLE SOD 40 MG TABEC PO SCH (08:48)
[2023-04-06] MEDS: BUPROPION HCL 100 MG TAB PO SCH ×2 (08:50→17:29)
[2023-04-06] MEDS: HEPARIN SOD (PORCINE) 5,000 UNIT/ML VIAL SC SCH ×2 (08:51→21:09)
[2023-04-06] MEDS: HYDROCODONE/APAP 7.5MG-325MG 1 EA TAB PO PRN ×2 (08:53→21:10)
[2023-04-06] MEDS ORDERED: NICOTINE 21 MG/EA PATCH TOP PRN (10:15)
[2023-04-06] MEDS: GUAIFENESIN 200 MG/10 ML UDC PO PRN (11:44)
[2023-04-06] MEDS ORDERED: KETOROLAC TROMETHAMINE 30 MG/ML VIAL IV PRN (16:00)
[2023-04-06] MEDS ORDERED: SODIUM CHLORIDE 0.9% 250ML 250 ML ONE (21:03)
[2023-04-06] MEDS: ATORVASTATIN 40 MG TAB PO SCH (21:10)
[2023-04-07] VITALS (11 sets, daily range): BP systolic 130–158; BP diastolic 77–94; PULSE 58–82; RESP 16–22; TEMP 97.6–98.4; O2SAT 94–98
[2023-04-07] MEDS: HYDROCODONE/APAP 7.5MG-325MG 1 EA TAB PO PRN (03:30)
[2023-04-07 05:48] LABS: BASOPHILS # (AUTO) 0.1 (0.0-0.1); BASOPHILS % 0.3 % (0.0-1.0); HEMATOCRIT 46.4 % (38.2-49.6); HEMOGLOBIN 15.6 g/dL (14.0-18.0); LYMPHOCYTES # (AUTO) 2.3 (1.0-3.2); LYMPHOCYTES % 10.3 % (18.0-39.1); MEAN CORPUSCULAR HEMOGLOBIN 30.6 pg (28-32); MEAN CORPUSCULAR HGB CONC 33.6 g/dL (31-35); MEAN CORPUSCULAR VOLUME 91.2 fL (81-99); MONOCYTES # (AUTO) 0.9 (0.2-0.8); MONOCYTES % 3.9 % (4.4-11.3); NEUTROPHILS # (AUTO) 18.1 (2.1-6.9); NEUTROPHILS % 82.3 % (38.7-80.0); PLATELET COUNT 356 x10e3/uL (140-360); RED BLOOD COUNT 5.09 x10e6/uL (4.3-5.7); RED CELL DISTRIBUTION WIDTH 13.3 % (11.7-14.4)
[2023-04-07 06:11] LABS: ANION GAP 12.4 mmol/L (8-16); CALCIUM 8.7 mg/dL (8.4-10.2); CREATININE, SERUM 1.22 mg/dL (0.72-1.25); POTASSIUM 4.4 mmol/L (3.5-5.1)
[2023-04-07] MEDS: GABAPENTIN 100 MG CAP PO SCH ×4 (06:12→23:34)
[2023-04-07] MEDS: ALBUTEROL/IPRATROPIUM 3 ML NEB NEB SCH ×3 (06:35→19:52)
[2023-04-07] MEDS: BUDESONIDE/FORMOTEROL 160/4.5MCG INHALER INH SCH ×2 (06:45→21:55)
[2023-04-07] MEDS ORDERED: DEXAMETHASONE SOD PHOS 10 MG/1 ML VIAL IV SCH (09:00)
[2023-04-07] MEDS: GUAIFENESIN 200 MG/10 ML UDC PO PRN (09:41)
[2023-04-07] MEDS: ATORVASTATIN 40 MG TAB PO SCH (09:42)
[2023-04-07] MEDS: BUPROPION HCL 100 MG TAB PO SCH ×2 (09:42→16:31)
[2023-04-07] MEDS: AMLODIPINE BESYLATE 5 MG TAB PO SCH (09:42)
[2023-04-07] MEDS: ASPIRIN 81 MG CHEW TAB PO SCH (09:42)
[2023-04-07] MEDS: BENZONATATE 100 MG CAP PO SCH ×3 (09:43→21:54)
[2023-04-07] MEDS: PANTOPRAZOLE SOD 40 MG TABEC PO SCH (09:44)
[2023-04-07] MEDS: METOPROLOL SUCCINATE 50 MG TAB XL PO SCH ×2 (09:45→16:31)
[2023-04-07] MEDS: HEPARIN SOD (PORCINE) 5,000 UNIT/ML VIAL SC SCH ×2 (09:56→22:03)
[2023-04-07] MEDS: HYDROCODONE/APAP 10MG-325MG TAB PO PRN ×3 (10:28→23:35)
[2023-04-07 13:22] LABS: CLARITY,URINE CLEAR (CLEAR); COLOR,URINE YELLOW (YELLOW); KETONES,URINE NEGATIVE (NEGATIVE); LEUKOCYTE ESTERASE ,URINE NEGATIVE (NEGATIVE); NITRITE,URINE NEGATIVE (NEGATIVE); PROTEIN,URINE DIPSTICK NEGATIVE (NEGATIVE); URINE UROBILINOGEN 0.2 mg/dL (0.2 - 1)
[2023-04-07 13:36] LABS: BACTERIA,URINE RARE /HPF; EPITHELIAL CELLS,URINE RARE /LPF; WBC,URINE (MAN) 0-5 /HPF (0-5)
[2023-04-07] MEDS: TAMSULOSIN HCL 0.4 MG CAP PO SCH (17:23)
[2023-04-08] VITALS (11 sets, daily range): BP systolic 134–142; BP diastolic 84–109; PULSE 58–76; RESP 15–22; TEMP 97.6–98.3; O2SAT 95–98
[2023-04-08] MEDS: ALBUTEROL/IPRATROPIUM 3 ML NEB NEB SCH ×4 (00:15→19:00)
[2023-04-08] MEDS: GUAIFENESIN 200 MG/10 ML UDC PO PRN ×2 (04:45→09:59)
[2023-04-08] MEDS: GABAPENTIN 100 MG CAP PO SCH ×3 (05:54→17:27)
[2023-04-08] MEDS: HYDROCODONE/APAP 10MG-325MG TAB PO PRN ×3 (05:58→21:00)
[2023-04-08] MEDS: BUDESONIDE/FORMOTEROL 160/4.5MCG INHALER INH SCH ×2 (06:19→19:00)
[2023-04-08] MEDS: METOPROLOL SUCCINATE 50 MG TAB XL PO SCH ×2 (09:00→17:27)
[2023-04-08] MEDS: HEPARIN SOD (PORCINE) 5,000 UNIT/ML VIAL SC SCH ×2 (09:30→20:49)
[2023-04-08] MEDS: BUPROPION HCL 100 MG TAB PO SCH ×2 (09:50→17:25)
[2023-04-08] MEDS: BENZONATATE 100 MG CAP PO SCH ×3 (09:50→20:45)
[2023-04-08] MEDS: PREDNISONE 20 MG TAB PO SCH (09:50)
[2023-04-08] MEDS: PANTOPRAZOLE SOD 40 MG TABEC PO SCH (09:50)
[2023-04-08] MEDS: TAMSULOSIN HCL 0.4 MG CAP PO SCH ×2 (09:50→17:27)
[2023-04-08] MEDS: ASPIRIN 81 MG CHEW TAB PO SCH (09:56)
[2023-04-08] MEDS: AMLODIPINE BESYLATE 5 MG TAB PO SCH (09:56)
[2023-04-08] MEDS: DOXYCYCLINE HYCLATE TABLET 100 MG TAB PO SCH ×2 (10:13→17:25)
[2023-04-08] MEDS: ACETYLCYSTEINE 200 MG/ML 4ML VIAL INH SCH (19:00)
[2023-04-08] MEDS: ATORVASTATIN 40 MG TAB PO SCH (20:45)
[2023-04-09] MEDS: GABAPENTIN 100 MG CAP PO SCH ×2 (00:02→05:00)
[2023-04-09 00:05] VITALS: BP 136/84; PULSE 98; RESP 17; TEMP 97.8; O2SAT 98
[2023-04-09 01:00] VITALS: PULSE 71; RESP 20; O2SAT 93
[2023-04-09] MEDS: ALBUTEROL/IPRATROPIUM 3 ML NEB NEB SCH ×2 (01:00→07:41)
[2023-04-09 03:05] VITALS: BP 142/96; PULSE 82; TEMP 97.4; O2SAT 94
[2023-04-09] MEDS: HYDROCODONE/APAP 10MG-325MG TAB PO PRN (05:00)
[2023-04-09 05:23] LABS: BASOPHILS # (AUTO) 0.1 (0.0-0.1); BASOPHILS % 0.6 % (0.0-1.0); EOSINOPHILS # (AUTO) 0.2 (0.0-0.4); EOSINOPHILS % 0.9 % (0.0-6.0); HEMATOCRIT 45.8 % (38.2-49.6); HEMOGLOBIN 14.8 g/dL (14.0-18.0); LYMPHOCYTES # (AUTO) 4.9 (1.0-3.2); LYMPHOCYTES % 21.3 % (18.0-39.1); MEAN CORPUSCULAR HEMOGLOBIN 30.1 pg (28-32); MEAN CORPUSCULAR HGB CONC 32.3 g/dL (31-35); MEAN CORPUSCULAR VOLUME 93.3 fL (81-99); MONOCYTES # (AUTO) 1.9 (0.2-0.8); NEUTROPHILS # (AUTO) 14.9 (2.1-6.9); NEUTROPHILS % 64.5 % (38.7-80.0); PLATELET COUNT 325 x10e3/uL (140-360); RED BLOOD COUNT 4.91 x10e6/uL (4.3-5.7); RED CELL DISTRIBUTION WIDTH 13.7 % (11.7-14.4)
[2023-04-09 05:47] LABS: ANION GAP 12.8 mmol/L (8-16); CALCIUM 8.2 mg/dL (8.4-10.2); CREATININE, SERUM 1.03 mg/dL (0.72-1.25); POTASSIUM 3.8 mmol/L (3.5-5.1)
[2023-04-09 07:40] VITALS: PULSE 60; RESP 20; O2SAT 98
[2023-04-09] MEDS: ACETYLCYSTEINE 200 MG/ML 4ML VIAL INH SCH (07:41)
[2023-04-09] MEDS: BUDESONIDE/FORMOTEROL 160/4.5MCG INHALER INH SCH (07:56)
[2023-04-09 08:03] VITALS: BP 134/91; PULSE 65; RESP 20; TEMP 98.6; O2SAT 100
[2023-04-09 08:22] VITALS: BP 134/91; PULSE 65; RESP 20; TEMP 98.6; O2SAT 100
[2023-04-09] MEDS: BUPROPION HCL 100 MG TAB PO SCH (08:24)
[2023-04-09] MEDS: PANTOPRAZOLE SOD 40 MG TABEC PO SCH (08:24)
[2023-04-09] MEDS: AMLODIPINE BESYLATE 5 MG TAB PO SCH (08:24)
[2023-04-09] MEDS: METOPROLOL SUCCINATE 50 MG TAB XL PO SCH (08:24)
[2023-04-09] MEDS: TAMSULOSIN HCL 0.4 MG CAP PO SCH (08:24)
[2023-04-09] MEDS: DOXYCYCLINE HYCLATE TABLET 100 MG TAB PO SCH (08:24)
[2023-04-09] MEDS: PREDNISONE 20 MG TAB PO SCH (08:24)
[2023-04-09] MEDS: BENZONATATE 100 MG CAP PO SCH (08:24)
[2023-04-09] MEDS: HEPARIN SOD (PORCINE) 5,000 UNIT/ML VIAL SC SCH (08:25)
[2023-04-09] MEDS: ASPIRIN 81 MG CHEW TAB PO SCH (08:25)
== END 2023-04-09 11:00 | disposition home health service (06) | DRG 190 ==
LOC: ER 19:03 → MERGE 20:55 → ERHOLD 20:55 → MED/SURG3 04-02 11:50
PROVIDERS: ADMIT Internal Medicine; ATTEND Internal Medicine
PROC: 02HV33Z Insertion of Infusion Device into Superior Vena Cava, Percutaneous Approach (ICD-10-PCS; principal; 2023-04-06)
DX: J43.9 Emphysema, unspecified (principal); J96.01 Acute respiratory failure with hypoxia; J62.8 Pneumoconiosis due to other dust containing silica; G89.29 Other chronic pain; F17.210 Nicotine dependence, cigarettes, uncomplicated; I10 Essential (primary) hypertension; E78.5 Hyperlipidemia, unspecified; F32.9 Major depressive disorder, single episode, unspecified; Z79.51 Long term (current) use of inhaled steroids; Z20.822 Contact with and (suspected) exposure to COVID-19; Z80.1 Family history of malignant neoplasm of trachea, bronchus and lung
CPT/HCPCS: 36415; 36600; 71045; 71101; 71250; 80048; 80053; 80307; 81001; 82550; 82553; 82805; 83605; 83690; 83880; 84484; 85025; 85379; 87040; 87086; 93005; 94640; 94799; 96361; 99285; J1100; J1644; J1885; J1940; J2543; J2930; J7030; J7050; J7512